=== PATIENT | male | born 1955 | race Caucasian/White ===

== ENCOUNTER → 2024-10-12 12:01 | Outpatient (REF) | payer MEDICARE, OTHER, SELFPAY | LOC: RAD 12:01 | PROVIDERS: ATTENDING PHYSICIAN Family Medicine | DX: M25.562 Pain in left knee (principal); M79.89 Other specified soft tissue disorders; I82.402 Acute embolism and thrombosis of unspecified deep veins of left lower extremity; M79.605 Pain in left leg | CPT/HCPCS: 73564; 93971 ==